=== PATIENT | female | born 1955 | race Caucasian/White ===

== ENCOUNTER 2016-08-01 15:58 | Emergency (ER) | payer OTHER ==
[2016-08-01 17:24] LABS: HEMOGLOBIN 10.7 gm/dl (12.3-15.3); RED BLOOD COUNT 3.7 M/UL (4.00-5.10)
== END 2016-08-01 23:59 | disposition home or self-care (01) ==
LOC: ER1 15:58
PROVIDERS: Emergency Medicine
DX: M84.454A Pathological fracture, pelvis, initial encounter for fracture (principal); R41.82 Altered mental status, unspecified; C50.919 Malignant neoplasm of unspecified site of unspecified female breast; C79.51 Secondary malignant neoplasm of bone; Z79.891 Long term (current) use of opiate analgesic; Z79.899 Other long term (current) drug therapy
CPT/HCPCS: 36415; 70450; 71010; 80053; 82550; 82553; 83690; 83874; 84484; 85025; 93005; 96374; 96375; 96376; 99284; J0595; J2405

== ENCOUNTER 2016-08-14 22:40 | Emergency (ER) | payer OTHER | END 2016-08-15 01:10 | disposition E | LOC: ER1 22:40 | DX: I46.9 Cardiac arrest, cause unspecified (principal); Z85.3 Personal history of malignant neoplasm of breast | CPT/HCPCS: 31500; 92950; 99285; J0171; J0282; J7030 ==